=== PATIENT | female | born 1940 | race Caucasian/White ===

== ENCOUNTER 2018-12-18 20:47 | Inpatient (IN) | payer MEDICARE ==
[~2018-12-18] VITALS: Ht 162.6 cm; Wt 73.6 kg
--- NOTE | ~2018-12-18 | HEMODYNAMI ---
PATIENT:TOBY ARVIZU MEDICAL RECORD: [id number] : 36 LOCATION:[facility] [address] [facility]# [id number] ADMISSION DATE: 12/18/18 Generatedon:12/19/201818:43 Patient name: TOBY ARVIZU Patient #: [id number] SSN: [id number] : 1940 Date of study: 12/19/2018 Page: Of Hemodynamic Procedure Report Patient Data Patient Demographics Procedure consent was obtained First Name: TOBY Gender: Female Last Name: NOLBERTO : 1940 [facility] Initial: JUANITO Age: 78 year(s) Patient #: [id number] Race: SSN: [id number] Additional ID: [id number] Contact details [address]: [address] [place] [address] State: [place] City: [place] Zip code: [address] Past Medical History History of disease Date Diagnosis Comments CAD Hypertension Allergies: No known allergies Admission Admission Data Admission Date: 12/18/2018 Admission Time: 21:40 Admit Source: Other Insurance Payor: Private Room #: [id number] health insurance [facility] #: [id number] Height (in.): 64 BSA: 1.75 (m2) Height (cm.): 162.56 BMI: 26.49 (kg/m2) Weight (lbs.): 154.32 Weight (kg.): 70 Lab Results Lab Result Date: 12/19/2018 Lab Result Time: 0:00 Biochemistry Name Units Result Min Max BUN mg/dl 10 --(-*--)-- 7 18 Creatinine mg/dl 0.7 --(*---)-- 0.6 1.3 CBC Name Units Result Min Max Hemoglobin g/dl 10.9 *-(----)-- 13.5 17.5 Procedure Procedure Types Cath Procedure Diagnostic Procedure LHC Coronaries only Procedure Description Procedure Date Procedure Date: 12/19/2018 Procedure Start Time: 18:16 Procedure End Time: 18:24 Procedure Staff Name Function Beto Moreno MD Performing Physician Willem Toledo RT Monitor Chavez Ross RT Scrub Paul Buchanan RN Nurse Procedure Data Cath Procedure Fluoroscopy Diagnostic fluoroscopy Total fluoroscopy Time: 0.3 time: 0.3 min min Diagnostic fluoroscopy Total fluoroscopy dose: 51 dose: 51 mGy mGy Contrast Material Contrast Material Type Amount (ml) Isovue 300 13 Entry Location Entry Primary Successful Side Size Upsize Upsize Entry Closure Succes sful Closure Location (Fr) 1 (Fr) 2 (Fr) Remarks Device Remarks Femoral Left 6 Fr Exoseal artery Short Estimated blood loss: 5 ml Procedure Complications No complications Procedure Medications Medication Administration Route Dosage 0.9% NaCl I.V. 100 ml/hr Oxygen etCO2 Nasal cannula 4 l/min Heparin Flush Bag added to field 2 bags (1000units/500ml NS) Lidocaine 2% added to field 20 Hemodynamics Rest BSA: 1.75 (m2) HGB: 10.9 (g/dl) O2 Consumption: Estimated: 160.49 (ml/min) O2 Co nsumption indexed: Estimated:91.71 (ml/min/m) Heart Rate: 75 (bpm) Snapshots Pre Cath Intra NCS Post Cath Vital Signs Time Heart Resp SPO2 etCO2 NIBP (mmHg) Rhythm Pain Sedation Rate (ipm) (%) (mmHg) Status Level (bpm) 18:12:10 84 15 95 22.4 135/75(114) NSR 0 (11) 10(A) , No pain 18:16:29 80 12 99 27.6 128/67(104) NSR 0 (11) 10(A) , No pain 18:20:42 82 12 99 25.4 123/66(95) NSR 0 (11) 10(A) , No pain 18:26:04 79 15 98 28.4 125/74(103) NSR 0 (11) 10(A) , No pain 18:29:00 77 13 99 26.9 128/73(112) NSR 0 (11) 10(A) , No pain 18:33:16 78 13 99 26.9 129/72(87) NSR 0 (11) 10(A) , No pain 18:37:26 79 13 98 29.1 128/71(100) NSR 0 (11) 10(A) , No pain 18:41:40 79 14 99 23.9 129/67(100) NSR 0 (11) 10(A) , No pain Medications Time Medication Route Dose Verified Delivered Reason Notes Eff ectiveness by by 18:11:20 0.9% NaCl I.V. 100 Paul Paul Per ml/hr Dewayne Buchanan physician RN RN 18:11:35 Oxygen etCO2 4 Paul Paul for low 02 Nasal l/min Dewayne Buchanan sats cannula RN RN 18:11:45 Heparin Flush added 2 Paul Paul used for Bag to bags Dewayne Buchanan procedure (1000units/500ml field RN RN NS) 18:11:55 Lidocaine 2% added 20ml Paul Paul for local to vial Dewayne Buchanan anesthetic field RN orchestra teacher Log Time Note 17:59:56 Informed consent obtained and on chart 18:00:03 Patient Weight : 154.32 lbs 18:00:03 Patient Height : 64 inches 18:00:29 Procedure Status Urgent Heart Cath (IP). 18:00:30 Paul Buchanan RN sent for patient. Start room use. 18:00:31 Time tracking: Call back (After hours or weekends) 18:00:35 Plan of Care:Hemodynamics will remain stable., Cardiac rhythm will remain stable., Comfort level will be maintained., Respiratory function will remain adequate., Patient/ family verbilizes understanding of procedure., Procedure tolerated without complication., Recovers from procedure without complications.. 18:01:05 Lab results completed and on chart. 18:07:30 Patient arrives emergently. 18:07:35 Patient received from Med II to CCL 1 Alert and oriented. Tansferred to table in Supine position. 18:07:36 Warm blankets applied, and juan hugger turned on for patient comfort. 18:07:36 Correct patient and procedure confirmed by team. 18:07:36 ECG and BP/O2 sat monitors applied to patient. 18:07:38 Pre-procedure instructions explained to patient. 18:07:38 Pre-op teaching completed and patient verbalized understanding. 18:07:39 Family in patients room. 18:07:42 Patient NPO since Midnight. 18:11:06 Vital chart was started 18:11:20 0.9% NaCl 100 ml/hr I.V. was administered by Paul Buchanan RN; Per physician; 18:11:35 Oxygen 4 l/min etCO2 Nasal cannula was administered by Paul Buchanan RN; for low 02 sats; 18:11:45 Heparin Flush Bag (1000units/500ml NS) 2 bags added to field was administered by Paul Buchanan RN; used for procedure; 18:11:55 Lidocaine 2% 20ml vial added to field was administered by Paul Buchanan RN; for local anesthetic; 18:12:50 Baseline sample Acquired. 18:12:53 Rhythm: sinus rhythm 18:12:55 Full Disclosure recording started 18:13:55 Patient allergic to No known allergies 18:13:57 Is the patient allergic to Iodine/contrast media? No. 18:13:58 Is patient on blood thinner?Yes 18:14:00 ACC The patient was administered the following blood thiners within the last 24 hours: ACCPlavix 18:14:03 Patient diabetic? No. 18:14:05 Previous problem with sedation/anesthesia? No ? 18:14:07 Snore? No 18:14:07 Sleep apnea? No 18:14:08 Deviated septum? No 18:14:09 Opens mouth fully? Yes 18:14:10 Sticks out tongue? Yes 18:14:12 Airway obstruction? No ? 18:14:15 Dentures? No ? 18:14:18 Pre procedure: left dorsailis pedis pulse 2+ Normal; easily identifiable; not easily obliterated 18:14:31 Patient pain scale 3/10 ?. 18:14:37 IV patent on arrival in right hand with 0.9% NaCl at [facility]. 18:14:44 Left groin area was prepped with chlora-prep and draped in sterile fashion 18:14:45 Alarms reviewed by R. N. 18:14:45 Sharps counted by scrub and verified by R.N. 18:14:47 Use device set Femoral Dx 18:14:48 ACIST Syringe (28742) opened to sterile field. 18:14:48 Bag Decanter (2002) opened to sterile field. 18:14:50 Medline Cath Pack ([id number]) opened to sterile field. 18:14:52 ACIST Hand Control (30021) opened to sterile field. 18:14:52 ACIST Manifold (69292) opened to sterile field. 18:14:53 Tegaderm 4 x 4 (1626W) opened to sterile field. 18:14:54 EMERALD Guide Wire (469-668) opened to sterile field. 18:15: Physician arrived 18:15: --------ALL STOP TIME OUT------ 18:15: Final Timeout: patient, procedure, and site verified with staff and physician. All members of the team are in agreement. 18:15:28 Left groin site verified by team. 18:15:30 Fire Safety Assessment: A--An alcohol-based skin anteseptic being used preoperatively., C--Open oxygen or nitrous oxide is being used., D--An ESU, laser, or fiber-optic light is being used. 18:15:41 Physical assessment completed. ASA score P 4 - A patient with severe systemic disease that is a constant threat to life as per Beto Moreno MD. 18:15:56 2) 60-89 Mildly reduced kidney function, and other findings (as for stage 1) point to kidney disease. 18:16:01 Sedation plan: IV Moderate Sedation Medication:Versed, Fentanyl 18:16:06 Procedure started. 18:16:09 Local anesthetic to left femerol artery with Lidocaine 2% by Beto Moreno MD.INITIAL ACCESS ONLY 18:16:17 A 6 Fr Short sheath was inserted into the Left Femoral artery 18:16:23 SHEATH 6FR Dawn (QEG014) opened to sterile field. 18:17:36 Zero performed for pressure channel P1 18:18:13 Zero performed for pressure channel P1 18:18:49 GUIDE 6FR AR 1.0 catheter (TH8CT07) opened to sterile field. 18:19:01 6 Fr ar 1 guide catheter was inserted over the wire 18:19:04 RCA angiography performed. 18:19:33 Catheter removed. 18:19:41 EXOSEAL 6Fr (EX600) opened to sterile field. 18:20:46 Sheath removed intact; hemostasis achieved with Exoseal to the Left Femoral artery. 18:20:48 Procedure ended.(Physican Out) 18:21:51 Fluoroscopy time 00.30 minutes. 18:22:31 Fluoroscopy dose: 51 mGy 18:22:31 Flurop Dose total: 51 18:22:35 Dose Area Product 2259 mGy/cm. 18:22:41 Contrast amount:Isovue 300 13ml. 18:23:08 Maximum allowable dose exceeded? No. 18:23:09 Sharps counted by scrub and verified by R.N. 18:23:10 Insertion/operative site no bleeding no hematoma. 18:23:13 Post-op/insertion site Left Femoral artery dressed using a 4 x 4 and Tegaderm. 18:23:20 Post left femerol artery:stable, soft, clean and dry 18:23:21 Post Procedure Pulses reassessed and unchanged 18:23:24 Post-procedure physical assessment completed. ASA score P 4 - A patient with severe systemic disease that is a constant threat to life as per Beto Moreno MD. 18:23:26 Post procedure rhythm: unchanged. 18:23:29 Estimated blood loss: 5 ml 18:23:30 Post procedure instruction explained to patient.Patient verbalizes understanding. 18:23:30 Patient needs reinforcement of post procedure teaching. 18:23:37 Procedure type changed to Cath procedure, Diagnostic procedure, LHC, Coronaries only 18:23:48 Procedure and supply charges have been captured, reviewed, submitted and are correct. 18:23:50 Procedure Complication : No complications 18:23:52 Vital chart was stopped 18:23:52 See physician's report for complete and final results. 18:23:55 Report given to Other. 18:23:57 Patient transfered to OR with Stretcher. 18:23:59 Procedure ended. 18:23:59 Full Disclosure recording stopped 18:24:05 End room use (Document Last) 18:28:00 Vital chart was started 18:43:40 Vital chart was stopped Device Usage Item Name Manufacture Quantity Catalog Hospital Part Current Minimal L ot# / Number Charge Number Stock Stock Serial# Code ACIST Acist 1 50370 087178 729222 265499 20 Syringe Medical (54810) Systems Inc Bag Microtek 1 305574 41871 207496 5 Decanter Medical Inc. () Medline Medline 1 [id number] 127875 29660 910753 5 Cath Pack ([id number]) ACIST Hand Acist 1 18410 139869 043303 136890 5 Control Medical (05601) Systems Inc ACIST Acist 1 14717 094536 767383 527266 5 Manifold Medical (48590) Systems Inc Tegaderm 4 3M 1 1626W 004643 802037 606039 5 x 4 (1626W) EMERALD Cardinal 1 502455 395398 757190 279835 5 Guide Wire Health (502455) SHEATH 6FR Terumo 1 [id number] 793389 724061 754836 40 Dawn (CSK740) GUIDE 6FR Medtronic 1 [id number] 441140 95996 040671 1 AR 1.0 catheter ([id number]) EXOSEAL 6Fr Cardinal 1 EX600 995740 338848 354023 10 (EX600) Health Signature Audit [place] Stage Time Signature Unsigned Intra-Procedure 12/19/2018 Willem Toledo 6:43:36 PM RT(R) Signatures Performing Physician : Signature : Beto Moreno MD Date : Time : Monitor : Willem Toledo RT Signature : Date : Time : Nurse : Paul Buchanan Signature : RN Date : Time : [facility] [address] [facility] [place] [place] [address]
--- NOTE | ~2018-12-18 | HEMODYNAMI ---
PATIENT:TOBY ARVIZU MEDICAL RECORD: [id number] : 36 LOCATION:[facility] [address] [facility]# [id number] ADMISSION DATE: 12/18/18 Generatedon:12/19/201814:35 Patient name: TOBY ARVIZU Patient #: [id number] SSN: [id number] : 1940 Date of study: 12/19/2018 Page: Of Hemodynamic Procedure Report Patient Data Patient Demographics Procedure consent was obtained First Name: TOBY Gender: Female Last Name: NOLBERTO : 1940 [facility] Initial: JUANITO Age: 78 year(s) Patient #: [id number] Race: SSN: [id number] Additional ID: [id number] Contact details Address: [address] [place] [address] State: [place] City: [place] Zip code: [address] Past Medical History History of disease Date Diagnosis Comments CAD Hypertension Allergies: No known allergies Admission Admission Data Admission Date: 12/18/2018 Admission Time: 21:40 Admit Source: Other Insurance Payor: Private Room #: D.2118 health insurance [facility] #: [id number] Height (in.): 64 BSA: 1.75 (m2) Height (cm.): 162.56 BMI: 26.49 (kg/m2) Weight (lbs.): 154.32 Weight (kg.): 70 Lab Results Lab Result Date: 12/19/2018 Lab Result Time: 0:00 Biochemistry Name Units Result Min Max BUN mg/dl 10 --(-*--)-- 7 18 Creatinine mg/dl 0.7 --(*---)-- 0.6 1.3 CBC Name Units Result Min Max Hemoglobin g/dl 10.9 *-(----)-- 13.5 17.5 Procedure Procedure Types Cath Procedure Diagnostic Procedure LHC LH w/Coronaries PCI Procedure Coronary Stent Coronary Stent Initial Peripheral Cath Diagnostic Procedure Abd/Extremity Extremities Right Upper Ext. Arteriogram Procedure Description Procedure Date Procedure Date: 12/19/2018 Procedure Start Time: 14:17 Procedure End Time: 14:31 Procedure Staff Name Function Beto Moreno MD Performing Physician Corazon Bernard RT Monitor Jamey Crenshaw RT Scrub Kalina Mcfarlane RN Nurse Kecia Membreno RN Nurse Mike Sanon RT Monitor Indication CAD Non-Q wave CA Procedure Data Cath Procedure Fluoroscopy Diagnostic fluoroscopy Total fluoroscopy Time: 3.8 time: 3.8 min min Diagnostic fluoroscopy Total fluoroscopy dose: 470 dose: 470 mGy mGy Contrast Material Contrast Material Type Amount (ml) Isovue 300 111 Entry Location Entry Primary Successful Side Size Upsize Upsize Entry Closure Succes sful Closure Location (Fr) 1 (Fr) 2 (Fr) Remarks Device Remarks Femoral Right 5 Fr 6 Fr Exoseal artery Short Diagnostic catheters Device Type Used For End Catheter Placement MULTIPACK Pigtail 5 Fr LV Angiography catheter MULTIPACK JL 4.0 5Fr Left Coronary catheter Angiography MULTIPACK 3DRC 5Fr Right Coronary catheter Angiography Procedure Complications No complications Procedure Medications Medication Administration Route Dosage Oxygen etCO2 Nasal cannula 2 l/min Lidocaine 2% added to field 20 Heparin Flush Bag added to field 2 bags (1000units/500ml NS) 0.9% NaCl I.V. 100 ml/hr Versed I.V. 1 mg Fentanyl I.V. 50 mcg Heparin Bolus I.V. 4000 units Integrilin (Bolus I.V. 6.2 ml 2mg/ml) Plavix P.O. 600 mg Hemodynamics Rest BSA: 1.75 (m2) O2 Consumption: Estimated: 238 (ml/min) O2 Consumption indexed: E stimated:136 (ml/min/m) Pre Cath Intra NCS Post Cath Vital Signs Time Heart Resp SPO2 etCO2 NIBP (mmHg) Rhythm Pain Sedation Rate (ipm) (%) (mmHg) Status Level (bpm) 13:46:54 82 13 97 0 150/87(134) NSR 0 (11) 10(A) , No pain 13:51:14 87 10 96 0 160/84(131) NSR 0 (11) 10(A) , No pain 13:55:34 84 17 98 24 159/85(136) NSR 0 (11) 10(A) , No pain 13:59:52 83 16 98 29.2 147/77(120) NSR 0 (11) 10(A) , No pain 14:04:14 80 16 97 27 142/71(109) NSR 0 (11) 10(A) , No pain 14:08:30 76 10 96 29.2 126/59(93) NSR 0 (11) 10(A) , No pain 14:12:36 78 11 96 23.9 119/69(101) NSR 0 (11) 10(A) , No pain 14:16:46 80 11 95 32.2 123/65(99) NSR 0 (11) 9(A) , No pain 14:21:02 78 10 95 32.2 127/66(93) NSR 0 (11) 9(A) , No pain 14:25:18 79 12 94 32.2 127/68(98) NSR 0 (11) 9(A) , No pain 14:29:32 84 12 94 32.9 128/64(94) NSR 0 (11) 10(A) , No pain Medications Time Medication Route Dose Verified Delivered Reason Notes Effectiveness by by 13:45:12 Oxygen etCO2 2 Beto Gilman used for Nasal l/min Tiffanie Mcfarlane RN procedure cannula 13:45:20 Lidocaine 2% added 20ml Beto Pérez for local to vial Tiffanie Moreno MD anesthetic field 13:45:26 Heparin Flush added 2 Beto Pérez used for Bag to bags Tiffanie Moreno MD procedure (1000units/500ml field NS) 13:45:34 0.9% NaCl I.V. 100 Beto Gilman Per physician ml/hr Tiffanie Mcfarlane RN 14:12:23 Versed I.V. 1 mg Beto Gilman for sedation Tiffanie Mcfarlane RN 14:12:29 Fentanyl I.V. 50 Beto Gilman for sedation mcg Tiffanie Mcfarlane RN 14:25:23 Heparin Bolus I.V. 4000 Beto Gilman for verif ied units Tiffanie Mcfarlane RN anticoagulation with dr moreno 14:27:07 Integrilin I.V. 6.2 Beto Gilman for waste d (Bolus 2mg/ml) ml Tiffanie Mcfarlane RN antiplatelet 3.8 ml therapy of vial 14:33:02 Plavix P.O. 600 Beto Gilman for mg Tiffanie Mcfarlane RN antiplatelet therapy Procedure Log Time Note 13:25:12 Jamey REMY(R) sent for patient. Start room use. 13:29:21 Procedure Status Urgent Heart Cath (IP). 13:29:22 Time tracking: Regular hours (M-F 7:00 - 5:00) 13:29:26 Plan of Care:Hemodynamics will remain stable., Cardiac rhythm will remain stable., Comfort level will be maintained., Respiratory function will remain adequate., Patient/ family verbilizes understanding of procedure., Procedure tolerated without complication., Recovers from procedure without complications.. 13:29:28 Signed procedure consent form obtained from patient. 13:30:03 Patient Weight : 154.32 lbs 13:30:10 Patient Height : 64 inches 13:30:20 Admit Source: Other 13:30:25 Insurance Payor : Private health insurance 13:35:26 Indication : CAD 13:35:34 Indication : Non-Q wave CA 13:36:10 Patient received from Med II to CCL 1 Alert and oriented. Tansferred to table in Supine position. 13:36:10 Warm blankets applied, and juan hugger turned on for patient comfort. 13:36:11 Correct patient and procedure confirmed by team. 13:36:11 ECG and BP/O2 sat monitors applied to patient. 13:39:20 H&P Date Dictated: 12/18/2018 Within 30 days and on chart.. 13:39:23 Pre-procedure instructions explained to patient. 13:39:58 Pre-op teaching completed and patient verbalized understanding. 13:41:30 Family in patients room. 13:41:33 Patient NPO since Breakfast. 13:44:15 Patient allergic to No known allergies 13:44:28 Is the patient allergic to Iodine/contrast media? No. 13:44:30 Is patient on blood thinner?Yes 13:44:42 ACC The patient was administered the following blood thiners within the last 24 hours: ACCLovenox 13:44:52 Patient diabetic? No. 13:45:00 Patient not . Patient is over age 55. 13:45:04 ----Pre-sedation anethsthesia assessment.---- 13:45:08 Previous problem with sedation/anesthesia? No ? 13:45:12 Oxygen 2 l/min etCO2 Nasal cannula was administered by Kalina Mcfarlane RN; used for procedure; 13:45:12 Snore? No 13:45:14 Sleep apnea? No 13:45:20 Lidocaine 2% 20ml vial added to field was administered by Beto Moreno MD; for local anesthetic; 13:45:26 Heparin Flush Bag (1000units/500ml NS) 2 bags added to field was administered by Beto Moreno MD; used for procedure; 13:45:27 Deviated septum? No 13:45:28 Opens mouth fully? Yes 13:45:30 Sticks out tongue? Yes 13:45:34 0.9% NaCl 100 ml/hr I.V. was administered by Kalina Mcfarlane RN; Per physician; 13:45:37 Airway obstruction? No ? 13:45:42 Vital chart was started 13:45:51 Dentures? No ? 13:45:57 Pre procedure: right dorsailis pedis pulse 2+ Normal; easily identifiable; not easily obliterated 13:46:26 IV patent on arrival in right hand with 0.9% NaCl at [facility]. 13:47:50 Lab Result : BUN 10 mg/dl 13:47:50 Lab Result : Creatinine 0.7 mg/dl 13:47:50 Lab Result : Hemoglobin 10.9 g/dl 13:47:59 Lab results completed and on chart. 13:48:06 Right groin area was prepped with chlora-prep and draped in sterile fashion 13:48:08 Alarms reviewed by R. N. 13:48:09 Sharps counted by scrub and verified by R.N. 14:10:37 Physician arrived 14:10:37 --------ALL STOP TIME OUT------ 14:10:38 Final Timeout: patient, procedure, and site verified with staff and physician. All members of the team are in agreement. 14:10:39 Right groin site verified by team. 14:11:15 Fire Safety Assessment: A--An alcohol-based skin anteseptic being used preoperatively., C--Open oxygen or nitrous oxide is being used., D--An ESU, laser, or fiber-optic light is being used. 14:11:32 Physical assessment completed. ASA score P 2 - A patient with mild systemic disease as per Beto Moreno MD. 14:11:43 2) 60-89 Mildly reduced kidney function, and other findings (as for stage 1) point to kidney disease. 14:12:00 Maximum allowable contrast dose (3.7 X eGFR X 0.75)235 ml. 14:12:04 Sedation plan: IV Moderate Sedation Medication:Versed, Fentanyl 14:12:23 Versed 1 mg I.V. was administered by Kalina Mcfarlane RN; for sedation; 14:12:29 Fentanyl 50 mcg I.V. was administered by Kalina Mcfarlane RN; for sedation; 14:13:32 Use device set Femoral Dx 14:13:33 ACIST Syringe (99278) opened to sterile field. 14:13:34 Bag Decanter (2002S) opened to sterile field. 14:13:34 Medline Cath Pack ([id number]) opened to sterile field. 14:13:35 ACIST Hand Control (89298) opened to sterile field. 14:13:36 ACIST Manifold (99868) opened to sterile field. 14:13:36 DIAGNOSTIC Multipack 5Fr catheter set (QG5266) opened to sterile field. 14:13:37 Tegaderm 4 x 4 (1626W) opened to sterile field. 14:13:39 SHEATH 5FR [place] (MWP769) opened to sterile field. 14:13:40 EMERALD Guide Wire (614-214) opened to sterile field. 14:13:41 EXOSEAL 5Fr (EX500) opened to sterile field. 14:17:08 Procedure started. 14:17:08 Full Disclosure recording started 14:17:18 Local anesthetic to right femoral artery with Lidocaine 2% by Beto Moreno MD.INITIAL ACCESS ONLY 14:17:29 A 5 Fr sheath was inserted into the Right Femoral artery 14:17:36 Zero performed for pressure channel P1 14:17:41 A MULTIPACK Pigtail 5 Fr catheter was advanced over the wire and used for LV Angiography. 14:17:44 Zero performed for pressure channel P1 14:17:47 Zero performed for pressure channel P1 14:17:58 LV angiography performed. 14:18:03 LV gram done using HANNA 14:18:54 EF : 55 % 14:19:10 Right leg runoff performed. 14:19:39 (Iiliac right not leg) 14:19:50 Catheter exchanged over wire. 14:19:55 A MULTIPACK JL 4.0 5Fr catheter was advanced over the wire and used for Left Coronary Angiography. 14:20:18 LCA angiography performed. 14:21:24 Procedure type changed to Cath procedure, Diagnostic procedure, LHC, LHC w/Coronaries, PCI procedure, Coronary Stent, Coronary Stent Initial, Peripheral Cath Diagnostic Procedure, Abd/Extremity, Extremities, Right Upper Ext. Arteriogram 14:21:48 Catheter exchanged over wire. 14:21:53 A MULTIPACK 3DRC 5Fr catheter was advanced over the wire and used for Right Coronary Angiography. 14:22:03 INFLATOR Merit BasixCompak (AC9308) opened to sterile field. 14:22:16 CHOICE PT Extra Support J 300cm guide wire ([id number]) opened to sterile field. 14:22:25 RCA angiography performed. 14:22:59 Catheter exchanged over wire. 14:24:42 SHEATH 6FR [place] (VGG338) opened to sterile field. 14:24:42 GUIDE 6FR AR 1.0 catheter (PY9NB83) opened to sterile field. 14:25:23 Heparin Bolus 4000 units I.V. was administered by Kalina Mcfarlane RN; for anticoagulation; verified with dr moreno 14:27:01 Sheath upsized to a 6 Fr Short. 14:27:06 ACC Pre-intervention KOKI Flow is 3. 14:27:07 Integrilin (Bolus 2mg/ml) 6.2 ml I.V. was administered by Kalina Mcfarlane RN; for antiplatelet therapy; wasted 3.8 ml of vial 14:27:17 Pre PCI Site: [place] mRCA has 90% stenosis. 14:27:23 6 Fr ar 1 guide catheter was inserted over the wire 14:27:28 cptes wire advanced. 14:27:56 Place stent Inflation Number: 1 A COBRA RX 3.0 X 30 Stent was prepped and advanced across the Mid RCA 90. The stent was deployed at 13 JONO for 0:09 (min:sec) . 14:28:02 EXOSEAL 6Fr (EX600) opened to sterile field. 14:28:10 Stent catheter was removed intact over wire. 14:28:13 Wire removed. 14:28:14 Guide catheter removed. 14:29:49 Contrast amount:Isovue 300 111ml. 14:30:01 Sheath removed intact; hemostasis achieved with Exoseal to the Right Femoral artery. 14:30:03 Procedure ended.(Physican Out) 14:30:14 Fluoroscopy time 03.80 minutes. 14:30:18 Flurop Dose total: 470 14:30:18 Fluoroscopy dose: 470 mGy 14:30:22 Maximum allowable dose exceeded? No. 14:30:23 Sharps counted by scrub and verified by R.N. 14:30:34 Insertion/operative site no bleeding no hematoma. 14:30:48 Post-op/insertion site Right Femoral artery dressed using a 4 x 4 and Tegaderm. 14:30:53 ACCDominant side:Left 14:31:00 Post right femoral artery:stable 14:31:09 Post Procedure Pulses reassessed and unchanged 14:31:12 Post procedure: right dorsailis pedis pulse 2+ Normal; easily identifiable; not easily obliterated. 14:31:16 Post-procedure physical assessment completed. ASA score P 2 - A patient with mild systemic disease as per Beto Moreno MD. 14:31:19 Post procedure rhythm: unchanged. 14:31:20 Post procedure instruction explained to patient.Patient verbalizes understanding. 14:31:21 Procedure and supply charges have been captured, reviewed, submitted and are correct. 14:31:29 Procedure Complication : No complications 14:31:32 Vital chart was stopped 14:31:32 See physician's report for complete and final results. 14:31:34 Report given to Pre/Post Procedure Room. 14:31:38 Patient transfered to Pre/Post Procedure Room with Bed. 14:31:40 Procedure ended. 14:31:40 Full Disclosure recording stopped 14:31:47 ACC-PCI Only Patient was given prescriptions, or instructed by Beto Moreno MD to start/continue the following medications upon discharge: Plavix 14:31:48 End room use (Document Last) 14:33:02 Plavix 600 mg P.O. was administered by Kalina Mcfarlane RN; for antiplatelet therapy; Intervention Summary Intervention Notes Time ActionType Lesion and Equipment Action# Pressure Duration Attributes Used 14:27:56 Place stent Mid RCA COBRA RX 1 13 00:09 3.0 X 30 Stent Device Usage Item Name Manufacture Quantity Catalog Number Hospital Part Current Minimal Lot# / Charge Number Stock Stock Serial# Code ACIST Syringe Acist 1 89940 922131 [id number] [id number] 20 (78739) NewTide Commerce Bag Decanter Microtek 1 2001S 970560 79130 014216 5 () Medical Inc. Medline Cath Medline 1 [id number] 839884 35209 516031 5 Pack ([id number]) ACIST Hand Acist 1 11253 240334 717309 794603 5 Control Medical (33449) Systems Inc ACIST Manifold Acist 1 49049 355611 492393 928187 5 (53059) Medical Systems Inc DIAGNOSTIC Cardinal 1 [id number] 147422 03147 907165 30 Multipack 5Fr Health catheter set (DV6401) Tegaderm 4 x 4 3M 1 1626W 304930 017138 715200 5 (1626W) SHEATH 5FR Terumo 1 IGG252 147471 153516 980310 5 [place] (LZX123) EMERALD Guide Cardinal 1 502-455 509445 681360 684601 5 Wire (502-455) Health EXOSEAL 5Fr Cardinal 1 EX500 702061 243547 863762 10 (EX500) Health MULTIPACK Cardinal 1 001534 5 Pigtail 5 Fr Health catheter MULTIPACK JL Cardinal 1 981443 5 4.0 5Fr Health catheter MULTIPACK 3DRC Cardinal 1 806116 5 5Fr catheter Health INFLATOR Merit Merit 1 JR9715 591853 727854 828555 15 [place] (AA4909) CHOICE PT Reynolds 1 [id number] 553855 950801 992462 5 Extra Support Scientific J 300cm guide wire ([id number]) SHEATH 6FR Terumo 1 ABS159 467006 013993 560246 40 [place] (ZCN271) GUIDE 6FR AR Medtronic 1 MR6SN92 136969 38976 850813 1 1.0 catheter (PA7JH50) COBRA RX 3.0 X Celonova 1 059-73-12472 855618 [id number] 2737470 6 6 [id number] 30 stent Biosciences (071-68-04016) EXOSEAL 6Fr Cardinal 1 EX600 412007 651881 176049 10 (EX600) Health Signature Audit Richardson Stage Time Signature Unsigned Intra-Procedure 12/19/2018 Jamey Crenshaw RT(R) 2:34:59 PM Signatures Performing Physician : Signature : Beto Moreno MD Date : Time : Monitor : Corazon Bernard Signature : RT Date : Time : Nurse : Buffie Mcfarlane RN Signature : Date : Time : Nurse : Kecia Haseeb RN Signature : Date : Time : Monitor : Mike Sanon RT Signature : Date : Time : [facility] [address] [place] [address], [place] [address]
[2018-12-18] MEDS ORDERED: CLARITIN 10 MG10 MG PO (20:52)
[2018-12-18] MEDS ORDERED: VASOTEC10 MG PO (20:53)
[2018-12-18] MEDS ORDERED: ISOSORBIDE MONO30 M1 PO (20:53)
[2018-12-18] MEDS ORDERED: MELATONIN5 MG PO (20:53)
[2018-12-18] MEDS ORDERED: MAGNESIUM (20:54)
[2018-12-18] MEDS ORDERED: NEURONTIN 300300 MG PO (20:54)
[2018-12-18] MEDS ORDERED: NOLVADEX10 M1 PO (20:55)
[2018-12-18] MEDS ORDERED: CELEXA20 MG PO (20:55)
[2018-12-18 21:40] VITALS: BP 175/80
[2018-12-18 21:45] LABS: BASOPHILS 0.2 % (0-2); HEMATOCRIT 33.9 % (36.0-48.0); HEMOGLOBIN 11.5 g/dL (12-16); IMMATURE GRANULOCYTES 0.2 % (0-5); LYMPHOCYTES 38.8 % (15-50); MCH 29.9 pg (26.0-34.0); MCHC 33.9 g/dL (31.0-37.0); MCV 88.3 fL (80.0-100.0); MONOCYTES 7.4 % (2-11); NEUTROPHILS 52.4 % (40-80); PLATELET COUNT 204 10x3/uL (130-400); RBC 3.84 10x6/uL (4.00-5.40); RDW 14.6 % (11.5-14.5)
[2018-12-18 21:55] LABS: INR 1.18 (0.85-1.17); PROTIME 14.5 SECONDS (11.6-15.0)
[2018-12-18 21:57] LABS: D-DIMER-QUANTITATIVE 1.47 ug/mLFEU (0.20-0.54)
[2018-12-18 22:06] LABS: ALBUMIN 3.1 g/dL (3.4-5.0); ALKALINE PHOSPHATASE 37 U/L (46-116); ALT (SGPT) 10 U/L (10-68); BILIRUBIN - TOTAL 0.61 mg/dL (0.2-1.3); CALC OSMOLALITY 267 mosm/kg (275-300); CALCIUM 7.9 mg/dL (8.5-10.1); CARBON DIOXIDE 20.7 mmol/L (21.0-32.0); CHLORIDE - SERUM 104 mmol/L (98-107); CREATININE - SERUM 0.9 mg/dL (0.6-1.3); GLUCOSE 82 mg/dL (74-106); POTASSIUM - SERUM 4.4 mmol/L (3.5-5.1); PROTEIN - SERUM 6.3 g/dL (6.4-8.2); SODIUM 135 mmol/L (136-145); UREA NITROGEN 10 mg/dL (7-18); eGFR NON AFRICAN AMERICAN 64 mL/min (90-120)
[2018-12-18 22:23] LABS: CREATINE KINASE 122 UL (21-215); MAGNESIUM - SERUM 2.1 mg/dL (1.8-2.4)
[2018-12-18 22:25] LABS: TROPONIN-I 1.422 ng/mL (0.000-0.060)
--- NOTE | 2018-12-18 22:27 | NUR ---
DR SHAH CALLED INFORMED OF TROP 1.422. NO FURTHER ORDERS GIVEN.
--- NOTE | 2018-12-18 23:00 | NUR ---
ADMIT VIA WC FROM ER PT DENIES CP BUT CO LEG PAIN AT THIS TIME SKIN IS WARM AND DRY LCTA IV IS IN RT HAND AND FLUSHES WELL WILL GIVE MSO4. ASSISTANCE FOR COMFORT AND MOUTH SWABS BED IS LOW AND LOCKED WITH SRX2 AND DAUGHTER PRESENT PT IS ALEERT AND OX4 CALL LIGHT IS IN REACH
[2018-12-19] VITALS (20 sets, daily range): BP systolic 54–190; BP diastolic 40–81; BMI 26.3; BMI 26.7
--- NOTE | 2018-12-19 00:06 | NUR ---
ORDERS REVIEWED AND TELEMETRY APPLIED PT NPO AND WILL GET EKG AT 345 PT IS SLEEPY NOW WITH NO PAIN
--- NOTE | 2018-12-19 00:43 | NUR ---
AT REST WITH EYES CLOSED
[2018-12-19 04:31] LABS: BASOPHILS 0.3 % (0-2); EOSINOPHILS 2.3 % (0-7); HEMATOCRIT 32.2 % (36.0-48.0); HEMOGLOBIN 10.9 g/dL (12-16); LYMPHOCYTES 45.1 % (15-50); MCH 30.3 pg (26.0-34.0); MCHC 33.9 g/dL (31.0-37.0); MCV 89.4 fL (80.0-100.0); MEAN PLATELET VOLUME 9.8 fL (7.4-10.4); MONOCYTES 6.7 % (2-11); NEUTROPHILS 45.6 % (40-80); PLATELET COUNT 184 10x3/uL (130-400); RDW 14.7 % (11.5-14.5); WBC 3.9 10x3/uL (4.8-10.8)
[2018-12-19 04:54] LABS: ALBUMIN 2.8 g/dL (3.4-5.0); ALKALINE PHOSPHATASE 33 U/L (46-116); ALT (SGPT) 11 U/L (10-68); BILIRUBIN - TOTAL 0.51 mg/dL (0.2-1.3); CALC OSMOLALITY 269 mosm/kg (275-300); CALCIUM 7.6 mg/dL (8.5-10.1); CARBON DIOXIDE 20.7 mmol/L (21.0-32.0); CHLORIDE - SERUM 105 mmol/L (98-107); CKMB 2.8 U/L (0.0-3.6); CREATINE KINASE 103 UL (21-215); CREATININE - SERUM 0.7 mg/dL (0.6-1.3); GLUCOSE 78 mg/dL (74-106); POTASSIUM - SERUM 4.4 mmol/L (3.5-5.1); PROTEIN - SERUM 5.6 g/dL (6.4-8.2); SODIUM 136 mmol/L (136-145); UREA NITROGEN 10 mg/dL (7-18); eGFR NON AFRICAN AMERICAN 85 mL/min (90-120)
[2018-12-19 05:00] LABS: TROPONIN-I 1.053 ng/mL (0.000-0.060)
[2018-12-19 09:38] LABS: CKMB 1.9 U/L (0.0-3.6); CREATINE KINASE 75 UL (21-215)
[2018-12-19 09:39] LABS: TROPONIN-I 1.067 ng/mL (0.000-0.060)
--- NOTE | 2018-12-19 14:37 | HP ---
PATIENT: TOBY ARVIZU MEDICAL RECORD: [id number] ACCOUNT: [id number] LOCATION:[facility].2118 : 38 ADMISSION DATE: 12/18/18 PCP: JOI SMALLS MD HISTORY AND PHYSICAL EXAMINATION DIAGNOSES: 1. Non-Q-wave myocardial infarction. 2. Coronary artery disease. 3. Hypertension. 4. Metastatic breast cancer. HISTORY OF PRESENT ILLNESS: Mrs. Arvizu has a history of cardiac catheterization approximately 6 years ago in [place]. She was told at that time, she had blockage up to 50%, but nothing that needed intervention. She was having chest pain at that time. She has since been battling metastatic breast cancer. She has been on medical therapy with Imdur and enalapril. She began having chest pains over this past week. They have escalated. She presented with class IV anginal symptomatology, ruled in for non-Q-wave myocardial infarction. PHYSICAL EXAMINATION: GENERAL APPEARANCE: Well-nourished, well-developed, appears stated age. Level of distress, comfortable. PSYCHIATRIC: Mental status, alert, normal affect. Orientation, oriented to time, place and person. EYES: Lids and conjunctiva, noninjected. No discharge, no pallor. ENT: Lips, teeth, gums, normal dentition. Oropharynx, no cyanosis, no pallor. NECK: Carotid arteries, bilateral normal upstroke, no bruits, no thrills. JUGULAR VEINS: No jugular venous pressure or distention. CERVICAL LYMPH NODES: Nontender, nonenlarged. THYROID: Not enlarged. Nontender. No nodules. LUNGS: Respiratory effort, unlabored. CHEST: Normal curvature. No thoracic deformity. No chest wall tenderness. Percussion, resonant. Auscultation, clear. No wheezes, no rales, no rhonchi. CARDIOVASCULAR: Precordial exam, nondisplaced. No heaves or pericardial thrills. Rate and rhythm, regular. Heart sounds, normal S1, normal S2. No S3, no gallop, no rub. Systolic murmur, not heard. Diastolic murmur, not heard. EXTREMITIES: No cyanosis, no edema. Peripheral pulses, full and equal in all extremities, except as noted. No bruits appreciated. ABDOMEN: Soft, nondistended. Normal aorta. No bruit. Nontender. No masses. Liver, nontender, no hepatomegaly. Spleen, nontender, no splenomegaly. MUSCULOSKELETAL: No joint tenderness. No joint swelling. No erythema. NEUROLOGICAL: Normal gait, normal strength, normal tone. SKIN: Warm and dry. OVERALL IMPRESSION: Non-Q-wave myocardial infarction. At this time, her heart rates in the 60s, would not add a beta blockade. Her blood pressure is still in the 140 range. We will add a calcium channel siobhan to optimize medical management with continued symptomatology, would proceed with coronary angiography. TRANSINT:[id number] Voice Confirmation ID: [id number] DOCUMENT ID: [id number] HISTORY AND PHYSICAL [id number] TOBY ARVIZU JEFFREY MD at 1437 CC: [id number] DICTATION DATE: 12/19/18 1004 RADIO DIVISION LIEUTENANT: 12/19/18 1032 ADM IN [place] [id number] [place] [id number]
[2018-12-19] MEDS ORDERED: PLAVIX75 MG PO (16:37)
[2018-12-19] MEDS ORDERED: PRAVACHOL20 MG PO (16:37)
--- NOTE | 2018-12-19 17:30 | NUR ---
ALYSSA CALLED REPORTED PT B/P 56/40 PT C/O OF HURTING WHEN SHE BREATHES DRSG TO RT GROIN SOFT C/D/I NEW ORDERS RECEIVED
--- NOTE | 2018-12-19 17:30 | NUR ---
NS BOLUS STARTED PT IN [facility] BP 74/50
--- NOTE | 2018-12-19 18:15 | NUR ---
PT TO HVAC JOURNEYMAN VIA BED WITH STAFF VSS STABLIZED AT THIS TIME GARCIA JONES C/D/I
[2018-12-19 21:58] LABS: HEMATOCRIT 31.9 % (36.0-48.0); HEMOGLOBIN 10.7 g/dL (12-16); MCH 30.3 pg (26.0-34.0); MCHC 33.5 g/dL (31.0-37.0); MCV 90.4 fL (80.0-100.0); MEAN PLATELET VOLUME 9.8 fL (7.4-10.4); RBC 3.53 10x6/uL (4.00-5.40); RDW 14.7 % (11.5-14.5); WBC 11.8 10x3/uL (4.8-10.8)
--- NOTE | 2018-12-19 22:15 | NUR ---
2030 ASSESSMENT DONE SEE FLOW SHEET. ICU MONITORS IN PLACE ALARMS SET AND VERIFIED. 2114 DECREASE IN BP NOTED. DR DIAZ AT BEDSIDE. ORDERS RECEIVED. WILL CONTINUE TO MONITOR.
[2018-12-20] VITALS (35 sets, daily range): BP systolic 80–132; BP diastolic 34–84; Ht 162.6 cm; Wt 73.6 kg
--- NOTE | 2018-12-20 01:00 | NUR ---
2300 REASSESSMENT DONE SEE FLOW SHEET. VSS. 0100 WATER PROVIDED PER PT REQUEST.
--- NOTE | 2018-12-20 03:00 | NUR ---
REASSESSMENT DONE SEE FLOW SHEET.
--- NOTE | 2018-12-20 05:02 | NUR ---
LAURA COLELCTED DAILY ZACHARY COLLECTED VSS.
--- NOTE | 2018-12-20 13:20 | NUR ---
0715: ASSISTED UP TO CHAIR. NO DISTRESS NOTED. 1030: DR. DIAZ HERE. NEW ORDERS REC'D. 1245: ASSISTED BACK TO BED. 1300: Patti GORDON.
[2018-12-20 16:51] LABS: MAGNESIUM - SERUM 2.1 mg/dL (1.8-2.4); POTASSIUM - SERUM 3.9 mmol/L (3.5-5.1)
--- NOTE | 2018-12-20 17:58 | NUR ---
1640: EPISODES OF AF WITH RVR NOTED ON MONITOR. BLOOD SENT TO LAB FOR POTASSIUM AND MAGNESIUM LEVELS. 1700: LAB LEVELS WNL. DR. DIAZ NOTIFIED OF ARRYTHMIAS. INSTRUCTED TO NOTIFY DR. SHAH FOR TREATMENT. 170: DR. SHAH NOTIFIED OF ARRYTHMIAS. NEW ORDERS REC'D FOR PO SOTOLOL. 1730: SOTOLOL 120MG GIVEN PO. 173: DR. DIAZ CALLED TO RECEIVE UPDATE ON TREATMENT PLAN AND INQUIRING ABOUT ANTONIA OUTPUT. CONDITION UPDATE GIVEN. REC'D ORDERS TO DC PO NORVASC AND VASOTEC AND ORDER REC'D FOR IV ESTELA IF SBP <90.
--- NOTE | 2018-12-20 23:00 | NUR ---
1900 REPORT RECEIVED CARE ASSUMED ASSESSMENT DONE SEE FLOW SHEET. 1999 DR SHAH & DR DIAZ CALLED ORDERS RECEIVED. 2100 MEDS GIVEN PER JUL. INCREASE HR NOTED. 2199 DR SHAH & DR DIAZ CALLED ORDERS RECEIVED. 2299 REASSESSMENT DONE SEE FLOW SHEET. CONTINUE TO MONITOR.
[2018-12-21] VITALS (24 sets, daily range): BP systolic 92–137; BP diastolic 44–63
--- NOTE | 2018-12-21 01:00 | NUR ---
PT CONVERTED FROM AFIB TO NS. WATER PROVIED. VSS.
--- NOTE | 2018-12-21 03:04 | NUR ---
REASSESSMENT DONE SEE FLOW SHEET VSS NO SIGNS OF ACUTE DISTRESS NOTED WILL CONTINUE TO MONITOR.
--- NOTE | 2018-12-21 05:00 | NUR ---
IO. DAILY WEIGHT. PT AMBULATED TO CHAIR. VSS. WILL CONTINUE TO MONITOR.
[2018-12-21 05:57] LABS: HEMATOCRIT 28.2 % (36.0-48.0); HEMOGLOBIN 9.6 g/dL (12-16); MEAN PLATELET VOLUME 10.3 fL (7.4-10.4); RBC 3.1 10x6/uL (4.00-5.40); RDW 14.8 % (11.5-14.5)
[2018-12-21 05:59] LABS: WBC 7.1 10x3/uL (4.8-10.8)
[2018-12-21 06:08] LABS: ANION GAP 10.2 mmol/L (8-16); CARBON DIOXIDE 21.8 mmol/L (21.0-32.0); CREATININE - SERUM 0.8 mg/dL (0.6-1.3)
[2018-12-21 06:09] LABS: CALCIUM 6.7 mg/dL (8.5-10.1)
--- NOTE | 2018-12-21 13:16 | NUR ---
0720: SITTING IN CHAIR. NO DISTRESS NOTED. 0830: REQUESTED TO GO TO BED. ASSISTED BACK TO BED. 1215: DR. DIAZ HERE. CONDITION UPDATE GIVEN. NEW ORDERS REC'D 1230: LARRY DRAIN DC'D. SITE DRESSED WITH 4X4 AND SECURED WITH TEGADERM. 1315: DR. SHAH HERE. CONDITION UPDATE GIVEN. NEW ORDERS REC'D. IVF DC'D. O2 DC'D. FAMILY AT BEDSIDE. NO DISTRESS NOTED.
--- NOTE | 2018-12-21 13:19 | OP ---
PATIENT NAME: TOBY ARVIZU MEDICAL RECORD: [id number] :38 LOCATION:D[facility] D.07 ADMISSION DATE:12/19/18 SURGEON: NIK ROSENTHAL MD DATE OF OPERATION: 12/19/2018 SURGEON: Nik Rosenthal MD ANESTHESIA: General, Dr. Rosas. OPERATION PERFORMED: Pericardiotomy with drainage. PREOPERATIVE DIAGNOSIS: Pericardial tamponade. POSTOPERATIVE DIAGNOSIS: Pericardial tamponade. INDICATION FOR OPERATION: Pericardial tamponade and physiology improved with IV fluids. FINDINGS OF OPERATION: 200 cc of bloody fluid. DESCRIPTION OF PROCEDURE: After informed consent, adequate preoperative medication evaluation, the patient was brought to the operating room, placed on the table in the supine position. The patient underwent application of appropriate monitoring devices. She was then prepped and draped in a sterile field utilizing ChloraPrep and a Betadine-impregnated drape. The patient then underwent induction of anesthesia. After intubation and timeout, the incision was made in the subxiphoid area. Dissection carried down the fascia. The linea alba was opened. The preperitoneal space and mediastinum were entered. The pericardium was exposed. Hemostasis maintained with electrocautery. The pericardium was opened and 200 cc of bloody fluid removed. The incision was enlarged vertically and to the left. The pericardium was irrigated with copious amounts of saline solution. There was no active bleeding. A 19 Emerson drain was placed in the pericardium and brought out through the left subcostal area. This was secured. The pericardium was again examined. There was no active bleeding. Instrument count and sponge counts were correct times 2. The wound was closed in layers utilizing 0 Ethibond interrupted sutures of 2-0 Vicryl on the muscle, 3-0 Vicryl on the subcutaneous tissue, skin approximated with 3-0 subcuticular Vicryl. Sterile dressings were applied. The patient tolerated the procedure well and was transferred to CV ICU in stable condition. TRANSINT:[id number] Voice Confirmation ID: [id number] DOCUMENT ID: [id number] NIK ROSENTHAL MD at 1319 CC: [id number] DICTATION DATE: 12/19/182103 REAL ESTATE CLOSER: 12/20/18 0021 ADM IN [address] [place] [address]
--- NOTE | 2018-12-21 19:00 | NUR ---
REPORT RECEIVED CARE ASSUMED ASSESSMENT DONE SEE FLOW SHEET VSS. NO SIGNS OF ACUTE DISTRESS NOTED. WILL CONTINUE TO MONITOR.
--- NOTE | 2018-12-21 23:04 | NUR ---
2100 MED GIVEN PER MAR. VSS. 2300 REASSESSMENT DONE SEE FLOW SHEET VSS NO SIGNS OF ACUTE DISTRESS NOTED.
[2018-12-22] VITALS (11 sets, daily range): BP systolic 116–146; BP diastolic 46–99
--- NOTE | 2018-12-22 05:00 | NUR ---
0100 WATER PROVIDED PER PT REQUEST. PT AMBULATED TO BATHROOM WITH MINIMAL ASSISTANCE. ONE TIME WITH WALKER ONE TIME WITHOUT. VSS. 0300 REASSESSMENT DONE SEE FLOW SHEET. VSS. 0500 DAILY WEIGHT COLLECTED IO COLLECTED. VSS.
[2018-12-22 06:42] LABS: HEMATOCRIT 27.5 % (36.0-48.0); HEMOGLOBIN 9.6 g/dL (12-16); MCH 31.3 pg (26.0-34.0); MCHC 34.9 g/dL (31.0-37.0); MCV 89.6 fL (80.0-100.0); MEAN PLATELET VOLUME 10.6 fL (7.4-10.4); RBC 3.07 10x6/uL (4.00-5.40); RDW 14.4 % (11.5-14.5); WBC 5.4 10x3/uL (4.8-10.8)
[2018-12-22 06:49] LABS: CALC OSMOLALITY 264 mosm/kg (275-300); CALCIUM 7.2 mg/dL (8.5-10.1); CARBON DIOXIDE 24.2 mmol/L (21.0-32.0); CHLORIDE - SERUM 104 mmol/L (98-107); CREATININE - SERUM 0.7 mg/dL (0.6-1.3); GLUCOSE 104 mg/dL (74-106); POTASSIUM - SERUM 4.2 mmol/L (3.5-5.1); SODIUM 133 mmol/L (136-145); eGFR NON AFRICAN AMERICAN 85 mL/min (90-120)
[2018-12-22 06:50] LABS: UREA NITROGEN 9 mg/dL (7-18)
--- NOTE | 2018-12-22 07:00 | NUR ---
SHIFT ASSESSMENT COMPLETED, PT CARE ASSUMED. MONITORS ON AND WORKING, VITALS STABLE, PT AWAKE AND ALERT SITTING UP IN CHAIR. PT DENIES ANY COMPLAINT OF PAIN OR DISCOMFORT AT THIS TIME, CALL LIGHT WITHIN REACH. SEE FLOW SHEET FOR FURTHER DETAILS. WILL CONTINUE TO OBSERVE.
--- NOTE | 2018-12-22 09:00 | NUR ---
PT SITTING UP IN BED EATING BREAKFAST, FAMILY AT BEDSIDE, UPDATE PROVIDED. VITALS STABLE, CALL LIGHT WITHIN REACH, WILL CONTINUE TO OBSERVE.
--- NOTE | 2018-12-22 09:15 | NUR ---
ASSISTED PT TO BATHROOM, AND BACK TO CHAIR, PT TOLERATED WELL. MONITORS ON AND WORKING, VITALS STABLE. CALL LIGHT WITHIN REACH, WILL CONTINUE TO OBSERVE.
--- NOTE | 2018-12-22 10:11 | OP ---
PATIENT NAME: TOBY ARVIZU MEDICAL RECORD: [id number] :38 LOCATION:DNAOMI D.CV07 ADMISSION DATE:12/19/18 SURGEON: LAZARO SHAH MD DATE OF OPERATION: 12/19/2018 DATE OF SERVICE: 12/19/2018 PROCEDURES: 1. PTCA stent RCA. 2. Left heart catheterization. 3. Selective coronary angiography. 4. Left ventriculogram. 5. Right iliac angiography. INDICATION: Angina, non-Q-wave myocardial infarction, coronary artery disease, peripheral vascular disease. PROCEDURE IN DETAIL: After informed consent was obtained and after a detailed description of the risks, benefits as well as alternative therapies, the patient elected to proceed with angiogram and angioplasty. The right femoral area was prepped and draped in normal sterile fashion. Right femoral artery was cannulated via modified Seldinger technique with placement of 6-Egyptian sheath. All catheters exchanged through this sheath. FINDINGS: Left ventriculogram was performed in standard 30-degree HANNA view, reveals preserved cardiac wall motion, ejection fraction 55%. SELECTIVE CORONARY ANGIOGRAPHY: 1. Left main is with no significant angiographic disease. 2. Left anterior descending has moderate irregularities, but no flow-limiting stenosis. 3. The left circumflex has total occlusion in the mid vessel. This appears to be chronic. There is left to left collaterals. 4. Right coronary artery has 90% stenosis in the mid vessel. PTCA STENT OF THE RIGHT CORONARY: The stent used 3.0 x 30 mm Cobra. Result was 0% residual stenosis. OVERALL IMPRESSION: Successful percutaneous transluminal coronary angioplasty stent of the right coronary artery going from 90% initial stenosis to 0% residual. TRANSINT:[id number] Voice Confirmation ID: [id number] DOCUMENT ID: [id number] LAZARO SHAH MD at 1011 CC: [id number] DICTATION DATE: 12/19/18 1436 BEAUTY THERAPIST: 12/19/18 1519 [place] [address]
--- NOTE | 2018-12-22 11:00 | NUR ---
PT SITTING UP IN CHAIR EATING LUNCH. FAMILY AT BEDSIDE. MONITORS ON AND WORKING, VITALS STABLE, WILL CONTINUE TO OBSERVE.
--- NOTE | 2018-12-22 13:50 | NUR ---
infusaport heprin locked. discharge instructions provided to pt and to family. made aware of follow up appt with dr storm, pt teaching and dischrage instructions sent with family, all personal belongings with pt. pt discharged home via family/personal car.
--- NOTE | 2018-12-22 18:45 | MORECARE ---
CASE MANAGEMENT DISCHARGE SUMMARY PATIENT: TOBY ARVIZU ANN UNIT: [id number] ADM DATE: 12/19/18 AGE: 78 : 38 SEX: F ROOM/BED: [facility] AUTHOR: JAGRUTI MARIE PHYSICIAN: REFERRING PHYSICIAN: LAZARO SHAH MD DATE OF SERVICE: 12/22/18 Discharge Plan Patient Name: TOBY ARVIZU Facility: [facility]:[place] : 1940 Planned Disposition: Home Anticipated Discharge Date: Discharge Date: 12/22/2018 Expected LOS: Initial Reviewer: [email or web address] Initial Review Date: 12/18/2018 Generated: 12/22/18 7:45 pm Patient Name: TOBY ARVIZU Page 49955 at 1845 All edits/amendments must be made on the electronic document DICTATION DATE: 12/22/181843 HASH SLINGER: MODESTO 12/22/181843 RPT#: [id number] DC DATE:12/22/18 STATUS: DIS IN [facility] [address] [place] [address] END OF REPORT
--- NOTE | 2018-12-22 18:52 | MORECARE ---
CASE MANAGEMENT DISCHARGE SUMMARY PATIENT: TOBY ARVIZU ANN UNIT: [id number] ADM DATE: 12/19/18 AGE: 78 : 38 SEX: F ROOM/BED: [facility] AUTHOR: JAGRUTI MARIE PHYSICIAN: REFERRING PHYSICIAN: LAZARO SHAH MD DATE OF SERVICE: 12/22/18 Discharge Plan Patient Name: TOBY ARVIZU Facility: [facility]:[place] : 1940 Planned Disposition: Home Anticipated Discharge Date: Discharge Date: 12/22/2018 Expected LOS: Initial Reviewer: [email or web address] Initial Review Date: 12/18/2018 Generated: 12/22/18 7:52 pm DCPIA - Discharge Planning Initial Assessment Updated by [email or web address]: Yamileth Moyer on 12/22/18 6:49 pm * Is the patient Alert and Oriented? Yes * How many steps to enter\exit or inside your home? * PCP MARK OSEGUERA APRN * [facility]acy [facility] * Preadmission Environment Home with Family * ADLs Independent * Other Equipment WALKER, B/P CUFF, CANE * List name and contact numbers for known caregivers / representatives who currently or will assist patient after discharge: CONNIE TORRES - DAUGHTER- [phone] PRUDENCE NEWMAN- SISTER- [phone] * Verbal permission to speak to the caregivers and representatives has been obtained from the patient. Yes * Community resources currently utilized Meals on Wheels * Please name any agencies selected above. [employer] * Additional services required to return to the preadmission environment? No * Can the patient safely return to the preadmission environment? Yes * Has this patient been hospitalized within the prior 30 days at any hospital? No Last DP export: 12/22/18 5:45 pm Patient Name: TOBY ARVIZU Page 12131 at 1852 All edits/amendments must be made on the electronic document DICTATION DATE: 12/22/181850 SLICING MACHINE OPERATOR: MODESTO 12/22/181850 RPT#: [id number] DC DATE:12/22/18 STATUS: DIS IN [facility] [address] [place] [address] END OF REPORT
--- NOTE | 2018-12-22 19:04 | MORECARE ---
CASE MANAGEMENT DISCHARGE SUMMARY PATIENT: TOBY ARVIZU ANN UNIT: [id number] ADM DATE: 12/19/18 AGE: 78 : 38 SEX: F [facility] AUTHOR: CYNTHIA,DOC PHYSICIAN: REFERRING PHYSICIAN: LAZARO SHAH MD DATE OF SERVICE: 12/22/18 Discharge Plan Patient Name: TOBY ARVIZU Facility: [facility]:[place] : 1940 Planned Disposition: Home Anticipated Discharge Date: Discharge Date: 12/22/2018 Expected LOS: Initial Reviewer: [email or web address] Initial Review Date: 12/18/2018 Generated: 12/22/18 8:04 pm Comments DCP- Discharge Planning Updated by [email or web address]: Yamileth Moyer on 12/22/18 6:[address] Patient Name: TOBY ARVIZU Admission Status: ER Accout number: [id number] Admission Date: 12-19-2018 : 1940 Admission Diagnosis: Attending: JACQUIE SHAH Current LOS: 3 Anticipated DC Date: Planned Disposition: Home Primary Insurance: [employer] Discharge Planning Comments: CM met with patient and daughter Connie at bedside after explaining CM role and obtaining verbal consent. Patient lives at home with her that has dementia and plans to return there upon discharge. CM discussed availability / needs of home health and medical equipment. Patient would like home health and requested Dr. Pope to follow for Home Health. CM called Dr. Pope office and left message. Patient sees Dr. Pope every 2 weeks for chemo. Daughter requesting home care assistance. CM gave information on [facility] Agency on Aging and [place] choices for assistance. Patient doesn't have any family that lives close to her. Patient states she will have her daughter drive her home upon discharge. D/C IMM explained and served 12/22/18 @ 1155. CM awaiting to hear back from doctor Pope for HH orders. JETHRO signed for CM will continue to follow and assist as needed with discharge planning / needs. Granulating Machine Operator: Yamileth Moyer DCPIA - Discharge Planning Initial Assessment Updated by [email or web address]: Yamileth Moyer on 12/22/18 6:49 pm * Is the patient Alert and Oriented? Yes * How many steps to enter\exit or inside your home? * PCP MARK OSEGUERA APRN * Pharmacy [facility] * Preadmission Environment Home with Family * ADLs Independent * Other Equipment WALKER, B/P CUFF, CANE * List name and contact numbers for known caregivers / representatives who currently or will assist patient after discharge: CONNIE TORRES - DAUGHTER- [phone] PRUDENCE NEWMAN- SISTER- [phone] * Verbal permission to speak to the caregivers and representatives has been obtained from the patient. Yes * Community resources currently utilized Meals on Wheels * Please name any agencies selected above. [employer] * Additional services required to return to the preadmission environment? No * Can the patient safely return to the preadmission environment? Yes * Has this patient been hospitalized within the prior 30 days at any hospital? No Coverage Notice Reviewer: [email or web address] Raul Moyer Notice Issued Date-Time: 12/22/2018 11:55 Notice Type: IM Discharge Notice Notice Delivered To: Patient Relationship to Patient: Self Cota Name: Delivery Method: HAND - Hand Delivered Geri Days: Prior Verbal Notification: Recipient Understood Notice: Yes Recipient Signature: Yes Med Rec Note Co-signed by Attending: Coverage Notice Comment: Reviewer: [id number] Moyer Notice Issued Date-Time: 12/22/2018 11:55 Notice Type: Patient Choice Letter Notice Delivered To: Patient Relationship to Patient: Self Cota Name: Delivery Method: HAND - Hand Delivered Geri Days: Prior Verbal Notification: Recipient Understood Notice: Yes Recipient Signature: Yes Med Rec Note Co-signed by Attending: Coverage Notice Comment: Last DP export: 12/22/18 5:52 pm Patient Name: TOBY ARVIZU Page [id number] at 1904 All edits/amendments must be made on the electronic document DICTATION DATE: 12/22/181903 CLAIMS REPRESENTATIVE: MODESTO 12/22/181903 RPT#: [id number] DC DATE:12/22/18 STATUS: DIS IN [facility] [address] [place] [address] END OF REPORT
--- NOTE | 2018-12-22 19:11 | MORECARE ---
CASE MANAGEMENT DISCHARGE SUMMARY PATIENT: TOBY ARVIZU ANN UNIT: [id number] ADM DATE: 12/19/18 AGE: 78 : 38 SEX: F [facility] AUTHOR: CYNTHIA,DOC PHYSICIAN: REFERRING PHYSICIAN: LAZARO SHAH MD DATE OF SERVICE: 12/22/18 Discharge Plan Patient Name: TOBY ARVIZU Facility: [facility]:[place] : 1940 Planned Disposition: Home Anticipated Discharge Date: Discharge Date: 12/22/2018 Expected LOS: Initial Reviewer: [email or web address] Initial Review Date: 12/18/2018 Generated: 12/22/18 8:11 pm Comments DCP- Discharge Planning Updated by [email or web address]: Yamileth Moyer on 12/22/18 6:[address] Patient Name: TOBY ARVIZU Admission Status: ER Accout number: [id number] Admission Date: 12-19-2018 : 1940 Admission Diagnosis: Attending: JACQUIE SHAH Current LOS: 3 Anticipated DC Date: Planned Disposition: Home Primary Insurance: [employer] Discharge Planning Comments: CM met with patient and daughter Connie at bedside after explaining CM role and obtaining verbal consent. Patient lives at home with her that has dementia and plans to return there upon discharge. CM discussed availability / needs of home health and medical equipment. Patient would like home health and requested Dr. Pope to follow for Home Health. CM called Dr. Pope office and left message. Patient sees Dr. Pope every 2 weeks for chemo. Daughter requesting home care assistance. CM gave information on [facility] Agency on Aging and [place] choices for assistance. Patient doesn't have any family that lives close to her. Patient states she will have her daughter drive her home upon discharge. D/C IMM explained and served 12/22/18 @ 1155. CM awaiting to hear back from doctor Pope for HH orders. JETHRO signed for CM will continue to follow and assist as needed with discharge planning / needs. Farmworker [employer]: Yamileth Moyer DCPIA - Discharge Planning Initial Assessment Updated by [id number]: Yamileth Moyer on 12/22/18 6:49 pm * Is the patient Alert and Oriented? Yes * How many steps to enter\exit or inside your home? * PCP MARK OSEGUERA APRN * Pharmacy [facility] * Preadmission Environment Home with Family * ADLs Independent * Other Equipment WALKER, B/P CUFF, CANE * List name and contact numbers for known caregivers / representatives who currently or will assist patient after discharge: CONNIE TORRES - DAUGHTER- [phone] PRUDENCE NEWMAN- SISTER- [phone] * Verbal permission to speak to the caregivers and representatives has been obtained from the patient. Yes * Community resources currently utilized Meals on Wheels * Please name any agencies selected above. [employer] * Additional services required to return to the preadmission environment? No * Can the patient safely return to the preadmission environment? Yes * Has this patient been hospitalized within the prior 30 days at any hospital? No Coverage Notice Reviewer: [email or web address] Raul Moyer Notice Issued Date-Time: 12/22/2018 11:55 Notice Type: IM Discharge Notice Notice Delivered To: Patient Relationship to Patient: Self Hardwood Flooring Specialist Name: Delivery Method: HAND - Hand Delivered Geri Days: Prior Verbal Notification: Recipient Understood Notice: Yes Recipient Signature: Yes Med Rec Note Co-signed by Attending: Coverage Notice Comment: Reviewer: [email or web address] Moyer Notice Issued Date-Time: 12/22/2018 11:55 Notice Type: Patient Choice Letter Notice Delivered To: Patient Relationship to Patient: Self Hardwood Flooring Specialist Name: Delivery Method: HAND - Hand Delivered Geri Days: Prior Verbal Notification: Recipient Understood Notice: Yes Recipient Signature: Yes Med Rec Note Co-signed by Attending: Coverage Notice Comment: Last DP export: 12/22/18 6:04 pm Patient Name: TOBY ARVIZU Page 09713 at 1911 All edits/amendments must be made on the electronic document DICTATION DATE: 12/22/181909 RN HEDIS: MODESTO 12/22/181909 RPT#: [id number] DC DATE:12/22/18 STATUS: DIS IN [facility] [address] [place] [address] END OF REPORT
--- NOTE | 2018-12-23 09:53 | DS ---
PATIENT:TOBY ARVIZU :36 MEDICAL RECORD: [id number] DISCHARGE SUMMARY ADMISSION DATE: 12/19/18 DISCHARGE DATE: 12/22/18 DIAGNOSES: 1. Unstable angina. 2. Coronary artery disease. 3. Percutaneous transluminal coronary angioplasty stent right coronary artery this admission. 4. Metastatic breast cancer. HOSPITAL COURSE: Mrs. Arvizu presents with unstable angina, non-Q-wave myocardial infarction, underwent cardiac catheterization revealing significant disease of the RCA. She underwent successful PTCA stent of the RCA. She unfortunately had a complication of tamponade due to a wire perforation after the procedure. She immediately brought back to the cardiac catheterization laboratory where there was no further leaking of the vessels. She went to cardiac surgery for a pericardial window placement, did well, had the complication of atrial fibrillation after this, it responded to sotalol, discharged home with the addition of aspirin, Plavix and sotalol to her medical regimen. She will follow up with [facility] in 1 month. TRANSINT:[id number] Voice Confirmation ID: [id number] DOCUMENT ID: [id number] LAZARO SHAH MD at 0953 CC: [id number] DICTATION DATE: 12/22/18 1013 AZURE ARCHITECT: 12/22/18 2109 DIS IN 12/22/18 [place] [address] [place] [address]
--- NOTE | 2018-12-23 09:53 | OP ---
PATIENT NAME: TOBY ARVIZU MEDICAL RECORD: [id number] :36 LOCATION:RavinderJUAN MRichmond DDarriusCV07 ADMISSION DATE:12/19/18 SURGEON: LAZARO SHAH MD DATE OF OPERATION: 12/19/2018 PROCEDURE: Repeat selective coronary angiography. Ms. Arvizu underwent successful PTCA and stent of the RCA. She became hypotensive afterwards. Echocardiogram revealed acute pericardial effusion. Second echocardiogram revealed worsening of the pericardial effusion. She was brought to the cardiac catheterization lab. She was stable hemodynamically here after 1 liter of IV fluids with systolic blood pressure in the 130. She is only complaining of minor chest pressure. We did repeat coronary angiography. There was no leaking of the vessel at this time. OVERALL IMPRESSION: Wire perforation and it sealed itself off. At this time, Dr. Rosenthal was consulted. She will go to the operating room for pericardial window and pericardial drain placement. She left the pie bakery laborer with systolic blood pressures in the 130s, heart rates 70s, sinus rhythm, stable, conversing. She will be brought to the OR for elective pericardial window placement. TRANSINT:[id number] Voice Confirmation ID: [id number] DOCUMENT ID: [id number] LAZARO SHAH MD at 0953 CC: [id number] DICTATION DATE: 12/19/18 184 RES HABILITATION ASSISTANT: 12/19/18 2302 DIS IN 12/22/18 [facility] [address] [place] [address]
--- NOTE | 2018-12-23 09:53 | DS ---
PATIENT:TOBY ARVIZU :[birth year] MEDICAL RECORD: [id number] DISCHARGE SUMMARY ADMISSION DATE: 12/19/18 DISCHARGE DATE: 12/22/18 DATE OF DISCHARGE: 12/19/2018 DIAGNOSES: 1. Non-Q-wave myocardial infarction. 2. PTCA and stent of RCA. 3. Hypertension. HOSPITAL COURSE: Ms. Arvizu presents with anginal symptomatology, rules in for non-Q-wave myocardial infarction. Cardiac catheterization revealed significant disease of the RCA. Underwent successful PTCA and stent of the RCA. Discharged home with the addition of aspirin and Plavix to her medical regimen as well as Pravachol. Will follow up with [facility] in 1 month. TRANSINT:[id number] Voice Confirmation ID: [id number] DOCUMENT ID: [id number] LAZARO SHAH MD at 0953 CC: [id number] DICTATION DATE: 12/19/18 1434 SCHOOL PATROL: 12/20/18 0123 DIS IN 12/22/[address] [facility] [address] [place] [address]
--- NOTE | 2018-12-23 09:53 | EC ---
PATIENT:TOBY ARVIZU ANN DATE OF SERVICE: 12/19/18 SEX: F MEDICAL RECORD: [id number] DATE OF : [birth year] LOCATION:[place] [address] AGE OF PATIENT: 78 ADMISSION DATE: 12/19/18 REFERRING PHYSICIAN: INTERPRETING PHYSICIAN: LAZARO MORENO MD ECHOCARDIOGRAM REPORT ECHO CHARGES 4 ECHO COMPLETE Date: 12/19/18 CLINICAL DIAGNOSIS: NE ECHOCARDIOGRAPHIC MEASUREMENTS (adult normal given) AC root (d.<3.7cm) 2.7 cm LV Septum d (<1.2 cm> 0.8 cm Valve Excursion 1.5 cm LV Septum (systole) 1.1 cm Left Atria (s.<4.0cm> 2.3 cm LVPW d(<1.2cm) 0.9 cm RV (d.<2.3cm) cm LVPW (sytole) 1.0 cm LV diastole(<5.6CM) 4.0 cm MV E-F(>70mm/sec) cm LV systole 2.6 cm LVOT Diameter 1.7 cm MV exc.(>10mm) cm Est.ejection fraction (50-75%) % DOPPLER: LVIT cm/sec A 41 cm/sec E 25 cm/sec LA cm/sec RVSP 20.2 mmHg LVOT 117 cm/sec AOP1/2T m/s Asc. Ao 142 cm/sec RVOT 87 cm/sec RA cm/sec PA 86 cm/sec AV Gradient Peak 8.1 mmHg AV Mean 3.8 mmHg AV Area 1.5 cm MV Gradient Peak 1.6 mmHg MV Mean 1.0 mmHg MV Area cm COMMENTS: Chief Chemist: Forrest GARCIAINDU KEVIN Exchange Mechanic: 1 Dr. Moreno TAPE# PACS Pericardial Effusion Y DATE OF SERVICE: 12/19/2018 ECHOCARDIOGRAM FINDINGS: 1. Left ventricular chamber size is within normal limits. Left ventricular systolic function mildly depressed. Overall ejection fraction 40% to 45%. 2. Left atrium, right atrium, and right ventricular chamber sizes are within normal limits. 3. Valvular structures have normal structure and motion. ECHOCARDIOGRAM REPORT [id number] TOBY ARVIZU 4. Doppler interrogation reveals mild pericardial effusion. No evidence of tamponade. No evidence of left atrial thrombus. Second echocardiogram was performed approximately 45 minutes after this pericardial effusion. This is slightly larger at this time; however, and there is evidence of right ventricular collapse by the second echocardiogram. TRANSINT:[id number] Voice Confirmation ID: [id number] DOCUMENT ID: [id number] LAZARO MORENO MD at 0953 CC: [id number] DICTATION DATE: 12/19/18 1847 HOME CARE AND HOME HEALTH AIDES TEACHER: 12/19/18 2350 DIS IN 12/22/18 [place] [id number] [place] [id number]
== END 2018-12-22 13:50 | disposition home health service (06) | DRG 271 ==
LOC: D.ER 20:47 → OBSVTIME 21:40 → D.M2 21:40 → D.CVICU 12-19 20:44 → D.M2 12-19 20:44 → D.CVICU 12-19 20:45
PROVIDERS: Family Medicine; Internal Medicine Cardiovascular Disease; ADMIT Internal Medicine Interventional Cardiology; ATTEND Internal Medicine Interventional Cardiology
PROC: B2111ZZ Fluoroscopy of Multiple Coronary Arteries using Low Osmolar Contrast (ICD-10-PCS; 2018-12-19)
PROC: B2151ZZ Fluoroscopy of Left Heart using Low Osmolar Contrast (ICD-10-PCS; 2018-12-19)
PROC: 4A023N7 Measurement of Cardiac Sampling and Pressure, Left Heart, Percutaneous Approach (ICD-10-PCS; 2018-12-19)
PROC: B40F1ZZ Plain Radiography of Right Lower Extremity Arteries using Low Osmolar Contrast (ICD-10-PCS; 2018-12-19)
PROC: 02703DZ Dilation of Coronary Artery, One Artery with Intraluminal Device, Percutaneous Approach (ICD-10-PCS; principal; 2018-12-19 13:25)
PROC: 0W9D00Z Drainage of Pericardial Cavity with Drainage Device, Open Approach (ICD-10-PCS; 2018-12-19 13:25)
DX: I21.4 Non-ST elevation (NSTEMI) myocardial infarction (principal); I31.3 Pericardial effusion (noninflammatory); I31.4 Cardiac tamponade; I97.51 Accidental puncture and laceration of a circulatory system organ or structure during a circulatory system procedure; C50.919 Malignant neoplasm of unspecified site of unspecified female breast; I10 Essential (primary) hypertension; I25.110 Atherosclerotic heart disease of native coronary artery with unstable angina pectoris; Y84.0 Cardiac catheterization as the cause of abnormal reaction of the patient, or of later complication, without mention of misadventure at the time of the procedure; I48.91 Unspecified atrial fibrillation